=== PATIENT | male | born 2000 | race Caucasian/White ===

== ENCOUNTER 2022-11-14 04:14 | Emergency (ER) | payer OTHER ==
[2022-11-14] MEDS ORDERED: IBUP-1773 PO (04:37)
--- NOTE | 2022-11-14 04:38 | ED Chest Pain ---
General Chief Complaint: Chest Pain Stated Complaint: CHEST PAINS Source: patient Exam Limitations: no limitations History of Present Illness Date Seen by Provider: Nov 14, 2022 Time Seen by Provider: 04:19 Initial Comments 22-year-old male with no pertinent past medical history coming in due to chest pain. Started about an hour ago when he was getting up to go to the bathroom. He feels like his heart is just pounding in his chest. He denies any burning, shortness of breath, cough, hemoptysis, lower extremity swelling or pain, no prior history of DVT or PE, no abdominal pain, nausea, vomiting, diarrhea, weakness, numbness, rash, no recent surgery in the past month, no family history of early cardiac , or any other concerns. He has not taken anything for it as of yet. Allergies and Home Medications Patient Home Medication List Home Medication List Reviewed: Yes Review of Systems Review of Systems Constitutional: No fever EENTM: No Symptoms Reported Respiratory: No Symptoms Reported Cardiovascular: See HPI Gastrointestinal: No Symptoms Reported Genitourinary: No Symptoms Reported Musculoskeletal: no symptoms reported Skin: no symptoms reported Psychiatric/Neurological: No Symptoms Reported Endocrine: No Symptoms Reported Hematologic/Lymphatic: No Symptoms Reported Past [id number]-Lisyfw Hx Patient Social History Tobacco Use?: Yes Tobacco type used: Cigarettes Smoking Status: Current Everyday Smoker Use of E-Cig and/or Vaping dev: No Substance use?: No Alcohol Use?: Yes Past Medical History Surgeries: Yes Orthopedic Physical Exam Vital Signs Capillary Refill : Height, Weight, BMI Height: '" Weight: lbs. oz. kg; BMI Method: General Appearance: No Apparent Distress, WD/WN HEENT: PERRL/EOMI, Normal ENT Inspection Neck: Full Range of Motion, Normal Inspection, Non Tender, Supple Respiratory: Chest Non Tender, Lungs Clear, Normal Breath Sounds, No Accessory Muscle Use, No Respiratory Distress Cardiovascular: Regular Rate, Rhythm, No Edema, Normal Peripheral Pulses Gastrointestinal: Normal Bowel Sounds, Non Tender, Soft Extremity: Normal Capillary Refill, Normal Inspection, Normal Range of Motion, Non Tender, No Calf Tenderness, No Pedal Edema Neurologic/Psychiatric: Alert, No Motor/Sensory Deficits, Normal Mood/Affect Skin: Normal Color, Warm/Dry Progress/Results/Core Measures Progress Progress Note : Progress Note 22-year-old male with above history coming in due to chest pain. ABCs were intact and vitals were stable on presentation. Physical exam reassuring including specifically no clinical signs of DVT, his pulse is regular, and he is well-appearing. He is low risk for PE per [place] criteria and is PERC negative. PE sufficiently ruled out. EKG with no acute ischemic changes. Clinically not consistent with ACS given lack of risk factors and signs and symptoms. I did a [id number] ultrasound showing no pericardial effusion, no pneumothorax, and normal ejection fraction with no obvious signs of right heart strain. He was given IM Toradol for his discomfort. He has not a burning quality, I think less likely coming from esophagus or stomach. More likely musculoskeletal in nature versus some type of pleuritis. I believe he is otherwise stable for discharge with outpatient follow-up. Prescription ibuprofen sent. He was sent home with strict return precautions Initial ECG Impression Date: Nov 14, 2022 Initial ECG Impression Time: 04:25 Initial ECG Rate: 81 Initial ECG Rhythm: Normal Sinus Comment Narrow QRS, normal axis, no significant ST changes or T wave abnormalities Departure Impression Primary Impression: Chest pain Qualified Codes: R07.82 - Intercostal pain Disposition: 01 HOME, SELF-CARE Condition: Stable Departure-Patient Inst. Decision time for Depature: 04:40 Referrals: NO,LOCAL PHYSICIAN (PCP/Family) Primary Care Physician Patient Instructions: Chest Pain That Is Not Caused by the Heart (DC) Add. Discharge Instructions: Fortunately this does not seem to be a life-threatening cause of chest pain. Typically this is inflammation from the lining of the heart, the lining of the lungs, your esophagus/stomach, or from another musculoskeletal cause. Given that is not really burning, less likely that it is coming from your esophagus or stomach. Much more likely to be muscular. The medicine we gave you should help with the pain. We also sent prescription medication to [facility] pharmacy. Please follow-up with your regular doctor if you are not seeing improvement in the next week or so. Scripts Ibuprofen (Ibuprofen) 600 Mg Tablet 600 MG PO Q6H PRN for PAIN-MILD for 7 Days, #28 TAB Prov: ELBA SCHMITZ MD 11/14/22 Work/School Note: Work Release Form Date Seen in the Emergency Department: Nov 14, 2022 Return to Work: Nov 15, 2022 Restrictions: No Restrictions ELBA SCHMITZ MD Nov 14, 2022 04:37
[2022-11-14 04:41] VITALS: BP 128/72
[2022-11-14] MEDS ORDERED: KETOROLAC 15 MG/ML VIAL IM ONE (04:45)
== END 2022-11-14 04:46 | disposition home or self-care (01) ==
LOC: ER FS 04:17
DX: R07.89 Other chest pain (principal); F17.210 Nicotine dependence, cigarettes, uncomplicated; Z28.310 Unvaccinated for COVID-19
CPT/HCPCS: 93005